=== PATIENT | female | born 1950 | race Caucasian/White ===

== ENCOUNTER 2019-01-23 05:30 | Inpatient (IN) | payer MEDICARE, BC ==
--- NOTE | 2019-01-20 07:44 | PREOPHP ---
DATE OF ADMISSION: 01/23/2019 HISTORY OF PRESENT ILLNESS: This is a 69-year-old female being admitted for right hip surgery. She has history of asthma, fibromyalgia, hypothyroidism and hypogonadism. PAST MEDICAL HISTORY: History of heart disease. Negative for kidney disease. Negative for hyperte nsion, negative cerebrovascular accident. Negative bleeding tendencies. Does have history of COPD. Allergic asthmatic attacks. Denies diabetes, liver disease, nonsmoker. She had a cardiac ablation 03/27/2018 for PSVT and she has had some asthmatic attacks for the past 35 years, being exposed to se condhand smoke. ALLERGIES: INCLUDE PENICILLIN, FLAGYL, and MORPHINE. SURGICAL HISTORY: 1995 hysterectomy, laparoscopic cholecystectomy 1996, fusion C5-C6 2000, bilateral mastectomies 2002, bilateral hip bursectomy 2008 and 2009. She is being treated for hypogonadism, h ypothyroidism for the last couple years. She is on clonidine. MEDICATIONS: Include Clonidine, B12, Cytomel 35 mg twice a day, on Bactrim as needed for UTIs. She also has problems with constipation somewhat better at this time. PHYSICAL EXAMINATION GENERAL: This is a 69-year-old female, thin built, in no acute distress. VITAL SIGNS: Stable. HEENT: She is not anemic or jaundiced or cyanosed. NECK: No pedal edema or jugular venous distention. CHEST: Clear. HEART: S1, S2 heard. ABDOMEN: Soft, nontender, no masses. Liver, spleen, kidneys not palpable. EXTREMITIES: Some problems with the right hip for which she is scheduled for surgery in the near [facility], later [facility]. RECTAL: Rectal examination is negative. PELVIC: Pelvic exam: No masses. She did have introital surgery to enlarge the introital opening whi ch had contracted following AP repair and vaginoplasty in the past. PREOPERATIVE LABORATORIES: Chest x-ray, EKG have been ordered. The patient is clinically stable and will not be a serious risk for surgery. If you have any further questions, please feel to call me, Dr. Sales, . Dr. Sales dictating Pre-Operartive History and Physical for Dr. Dannielle Mathew. Dictated By: DANNIELLE STATON/PATTI Conf#: [id number] DID#: [id number]
[~2019-01-23] VITALS: Ht 177.8 cm; Wt 69.9 kg
[2019-01-23] VITALS (43 sets, daily range): BP systolic 78–110; BP diastolic 45–72; PULSE 65–102; RESP 11–29; Ht 177.8 cm; Wt 69.9 kg
--- NOTE | 2019-01-23 05:47 | HPN ---
Date/Time of Note Date/Time of Note DATE: 01/23/19 TIME: 05:47 Interval H&P Admission Note Pt. seen H&P reviewed: No system changes DANNIELLE CHRISTIANSEN MD January 23, 2019 05:47
--- NOTE | 2019-01-23 05:48 | OPR ---
Date/Time of Note Date/Time of Note DATE: 01/23/19 TIME: 05:47 Operative Report Procedure Date: January 23, 2019 Preoperative Diagnosis Right hip arthritis following hip arthroscopy Postoperative Diagnosis Right hip arthritis following hip arthroscopy Operation/Procedure Performed 1. Revision of right hip arthroscopy to total hip arthroplasty 2. Injection of PRP solution Surgeon see signature line District Administrative Assistant Abdi Morocho DO Second District Administrative Assistant: ZAY ACEVEDO PA-C Anesthesia Type: general Estimated Blood Loss: 200 - 250 ml's Transfusion none Specimen None Grafts/Implants See body of op note Complications none Pt Condition Post Procedure: stable Disposition: PACU Procedure Description BREAKFAST BAR ATTENDANT SURGEON: Abdi Morocho DO was asked to be present at my request as a result of the complexity associated with this procedure including positioning of the extremity, positioning of the instrumentation and protection of the neurovascular structures. In my opinion, the assistance offered by a sleep tech is insufficient and he should be compensated for his time. PROCEDURE IN DETAIL: Following the administration of general endotracheal anesthesia supplemented with a spinal anesthetic, the patient was placed in the supine position. The antecubital fossa on the left was prepped and 60 cc of blood were aspirated. Under sterile conditions, the blood was passed off to the field service representative from the company who prepared the PRP solution. The left lower extremity was then prepped and draped in the usual sterile fashion. A advertising material distributor radiograph was obtained for preliminary limb length and femoral size as well as acetabular size. A lateral incision was then made exposing the tensor fascia the fascia was incised the tensor was retracted laterally and the vessels were cauterized. Severe scarring was noted from the prior surgical procedure that included an arthroscopic labral repair and capsulorrhaphy. Very significant scar tissue was encountered in the approach. This was then excised and mobilized in order to expose the anterior capsule. The anterior capsule was then identified and prepared for an incision. A capsulotomy was then performed and the femoral head was then evaluated. Severe arthritic changes were noted. In addition, multiple sutures were removed from the prior labral repair. A femoral head cut was then made in the appropriate degree of version and inclination. Following dislocation, severe arthritic changes were noted with very extensive than severe cystic changes in the femoral head. The acetabulum was then exposed and a capsulectomy and labrectomy were completed. The central portion was then entered and serially reamed up to the 51 mm size. A [employer] [place] cup which was 50 to mm, with a standard liner was then fit into position with solid fixation. Attention was then directed to the femur, the femur was exposed and prepared. The canal was entered and serially reamed up to the size 6 high offset. The femoral canal was then thoroughly irrigated and the PRP solution was then instilled into the femoral canal. A size 6 high offset Depuy Actis stem was then inserted with solid fixation. A 32 mm, +5 mm femoral head, which was ceramic was then inserted. The leg was taken through full range of motion with no evident instability. In addition, radiographs revealed excellent position with reproduction of the limb lengths within a millimeter. The wound was irrigated thoroughly. The wound was then closed in layers and a Prenio for the final cover. This was watertight. Estimated blood loss was procedure was 250 cc. Postoperative radiographs will be obtained in the recovery room. DANNIELLE CHRISTIANSEN MD January 23, 2019 05:48
[2019-01-23] MEDS ORDERED: TRANEXAMIC ACID 1GM/100ML(PMX) 100 ML IVPB SCH (06:00)
[2019-01-23] MEDS ORDERED: VANCOMYCIN 1 GM (PMX) 250 ML IVPB SCH (06:00)
[2019-01-23] MEDS ORDERED: SOD CHLORIDE 0.9% 100 ML, TRANEXAMIC ACID 3,000 MG IRR SCH ×2 (06:00)
[2019-01-23] MEDS ORDERED: BUPIVACAINE 0.5% (SDV) 30 ML, morphine SULFATE (PF) 8 MG, EPINEPHrine 0.3 MG, KETOROLAC... IRR SCH ×7 (06:00)
[2019-01-23] MEDS ORDERED: DEXAMETHASONE 1 MG TAB PO SCH (06:00)
[2019-01-23] MEDS ORDERED: GABAPENTIN 300 MG CAP PO SCH ×3 (06:00→21:00)
[2019-01-23] MEDS ORDERED: [UNRECOGNIZED DRUG - OTHER] PO (06:20)
[2019-01-23] MEDS ORDERED: GABA300C PO (06:20)
[2019-01-23] MEDS ORDERED: METO-319 PO (06:20)
[2019-01-23] MEDS ORDERED: LEVO25TA6 PO (06:20)
[2019-01-23] MEDS ORDERED: ALBU18HF INHALATION (06:22)
[2019-01-23] MEDS ORDERED: TIOT18CA INHALATION (06:22)
--- NOTE | 2019-01-23 06:45 | PREAC ---
Date/Time of Note Date/Time of Note DATE: 01/23/19 TIME: 06:40 Anesthesia Eval and Record Evaluation Time Pre-Procedure Interview DATE: 01/23/19 TIME: 06:40 Age 68 Sex female NPO: 8 hrs Preoperative diagnosis DJD, R. Hip Planned procedure CINTIA, Anterior Past Medical History Past Medical History: Includes Cardio: Arrythmia Pulm: Asthma Surgery & Anesthesia Issues Hx of PONV (Most likley due to Narcotics) Meds Anticoagulation: No Beta Arsh within 24 hr: Yes Reported Medications Albuterol Sulfate* (Ventolin HFA*) 18 Gm Hfa.aer.ad, 2 PUFF INHALATION BID, #1 INHALER 01/23/19 Tiotropium [place]* (Spiriva*) 18 Mcg Cap.w.dev, 2 CAP INHALATION DAILY, #30 CAP 01/23/19 [fleconaid ] No Conflict Check, 10 MG PO BID 01/23/19 Metoprolol Succinate* (Toprol XL*) 50 Mg Tab.er.24h, 50 MG PO BID, #30 TAB 01/23/19 Levothyroxine Sodium* (Levothyroxine Sodium*) 25 Mcg Tablet, 25 MCG PO BID, #30 TAB 01/23/19 Gabapentin* (Neurontin*) 300 Mg Capsule, 300 MG PO BID, #60 CAP 01/23/19 Current Medications Vancomycin HCl 250 ml @ 250 mls/hr PRE-OP IVPB Last administered on 01/23/19at 06:33; Admin Dose 250 MLS/HR; Start 01/23/19 at 06:00; Stop 01/23/19 at 16:00 Tranexamic Acid 100 ml @ 200 mls/hr Pre-op IVPB ; Start 01/23/19 at 06:00; Stop 01/23/19 at 16:00 Sodium Chloride/ Tranexamic Acid INTRA-OP IRR ; Start 01/23/19 at 06:00; Stop 01/23/19 at 16:00 Bupivacaine HCl/ Morphine Sulfate/ Epinephrine/ Ketorolac Tromethamine/ Clonidi ne HCl/ Sodium Chloride/ Vancomycin HCl INTRA-OP IRR ; Start 01/23/19 at 06:00; Stop 01/23/19 at 16:00 Dexamethasone (Decadron) 2 mg PREOP PO Last administered on 01/23/19at 06:33; Admin Dose 2 MG; Start 01/23/19 at 06:00; Stop 01/23/19 at 16:00 Gabapentin (Neurontin) 300 mg ONCE PO Last administered on 01/23/19at 06:33; Admin Dose 300 MG; Start 01/23/19 at 06:00; Stop 01/23/19 at 16:00 Meds reviewed: Yes Allergies Coded Allergies: Penicillins (Verified Allergy, Intermediate, 01/22/19) 01/22: PCN- ITCHING, METRONIDAZOLE- SEVERE RASH (PER DARCI FROM DR CHRISTIANSEN'S REQUEST) metronidazole (Verified Allergy, Intermediate, SEVERE RASH, 01/22/19) Allergies Reviewed: Yes Labs/Studies Labs Reviewed: Reviewed by anesthesiologist test: N/A Pre-procedure Exam Last vitals Vital Signs Date Temp Pulse Resp B/P (MAP) Pulse Ox O2 O2 Flow FiO2 Time Delivery Rate 01/23/19 97.4 86 18 110/67 99 Room Air 06:12 (81) Airway: Adequate mouth opening Mallampati: Mallampati II Teeth: Normal Lung: Normal Heart: Normal ASA Physical Status ASA physical status: 3 Emergency: None Planned Anesthetic General/MAC: LMA Neuraxial: Spinal Nerve block: Other (Spinal for post op pain, No Duramorph) Pre-operative Attestations Prior to commencing anesthesia and surgery, the patient was re-evaluated, there was verification of: *The patient's identity *The results of appropriate recent lab work and preoperative vital signs *The above evaluation not changing prior to induction *Anesthetic plan, risk benefits, alternative and complications discussed with patient/family; questions answered; patient/family understands, accepts and wishes to proceed. ADRIAN VAZQUEZ MD January 23, 2019 06:45
[2019-01-23] MEDS ORDERED: PROPOFOL 20 ML ONE (06:47)
[2019-01-23] MEDS ORDERED: PHENYLephrine (100 MCG/ML) 5ML SYG ONE (06:48)
[2019-01-23] MEDS ORDERED: TRANEXAMIC ACID 1GM/100ML(PMX) 200 ML ONE (06:51)
[2019-01-23] MEDS ORDERED: GLYCOPYRROLATE 0.4 MG INJ ONE (07:00)
[2019-01-23] MEDS ORDERED: EPHEDrine 25 MG/5 ML SYG ONE (07:00)
[2019-01-23] MEDS ORDERED: GABA-526 PO (07:01)
[2019-01-23] MEDS ORDERED: FLEC50TA PO (07:03)
[2019-01-23] MEDS ORDERED: FLUT1BLS INHALATION (07:04)
[2019-01-23] MEDS ORDERED: THROMBIN 5000 UNIT VIAL ONE (07:33)
[2019-01-23] MEDS ORDERED: CA CHLORIDE (GM) 10% 10 ML INJ ONE (07:33)
[2019-01-23] MEDS ORDERED: POLYMYXIN/BACITRACIN 1L IRRIG IRR ONE (07:49)
[2019-01-23] MEDS ORDERED: METOCLOPRAMIDE 10 MG INJ IV PRN (08:30)
[2019-01-23] MEDS ORDERED: ACETAMINOPHEN 325 MG TAB PO ONE (08:30)
[2019-01-23] MEDS ORDERED: ETOMIDATE 20 MG INJ ONE (08:32)
[2019-01-23] MEDS ORDERED: KETOROLAC 30 MG INJ ONE (08:33)
[2019-01-23] MEDS: ALBUTEROL HFA 8 GM INHALER INH SCH ×2 (09:00→23:00)
[2019-01-23] MEDS ORDERED: DIPHENHYDRAMINE 50 MG INJ IV PRN (09:00)
[2019-01-23] MEDS ORDERED: ONDANSETRON 4 MG INJ IV PRN (09:00)
[2019-01-23] MEDS ORDERED: oxyCODONE 5 MG TAB PO PRN ×3 (09:00)
[2019-01-23] MEDS ORDERED: HYDROmorphONE 1 MG/ML SYG IV PRN (09:00)
[2019-01-23] MEDS ORDERED: LEVOTHYROXINE 25 MCG TAB PO SCH (09:00)
[2019-01-23] MEDS ORDERED: ZOLPIDEM 5 MG TAB PO PRN (09:00)
[2019-01-23] MEDS ORDERED: MAGNESIUM HYDROXIDE 30ML CUP PO PRN (09:00)
[2019-01-23] MEDS ORDERED: NACL 0.9% 3 ML SYG IV SCH (09:00)
--- NOTE | 2019-01-23 09:31 | PAC ---
Date/Time of Note Date/Time of Note DATE: 01/23/19 TIME: 09:31 Post-Anesthesia Notes Post-Anesthesia Note Last documented vital signs Vital Signs Date Temp Pulse Resp B/P (MAP) Pulse Ox O2 O2 Flow FiO2 Time Delivery Rate 01/23/19 97.4 86 18 110/67 99 Room Air 06:12 (81) Activity: WNL Respiratory function: WNL Cardiovascular function: WNL Mental status: Baseline Pain reasonably controlled: Yes Hydration appropriate: Yes Nausea/Vomiting absent: Yes ADRIAN VAZQUEZ MD January 23, 2019 09:31
[2019-01-23] MEDS: ACETAMINOPHEN 1000MG/100ML IV 100 ML IVPB SCH ×2 (09:45→17:28)
[2019-01-23] MEDS ORDERED: ALBUMIN HUMAN 5% 250 ML ONE ×2 (10:28)
[2019-01-23] MEDS: ALBUMIN HUMAN 5% 250 ML IV SCH ×2 (10:41→11:43)
[2019-01-23] MEDS: LACTATED RINGER'S 1,000 ML IV SCH ×3 (12:38→23:26)
[2019-01-23] MEDS: DEXAMETHASONE 2 MG TAB PO SCH ×2 (12:38→17:28)
--- NOTE | 2019-01-23 12:38 | PDOCDIS ---
Discharge Instructions DIAGNOSIS Discharge Diagnosis Hip arthritis CONDITION [id number] Patient Condition: [id number] Good HOME CARE INSTRUCTIONS: [id number] Diet Instructions: [id number] Regular ACTIVITY: [id number] Activity Restrictions: [id number] Slowly Increase Activity Keep Limb Elevated [id number] Bathing Restrictions: [id number] Shower FOLLOW UP/APPOINTMENTS Follow-up Plan 2 weeks in the office SCHOOL/WORK RELEASE May return to School/Work with: With Restrictions School/Work Release Comment: No hip extension for 6 weeks DANNIELLE CHRISTIANSEN MD January 23, 2019 12:38
[2019-01-23] MEDS: VANCOMYCIN 500 MG (PMX) 100 ML IVPB SCH (18:28)
[2019-01-23] MEDS: SENNA/DOCUSATE NA (8.6MG/50MG) TAB PO SCH (21:40)
[2019-01-23] MEDS: FLECAINIDE 50 MG TAB PO SCH (21:42)
[2019-01-23] MEDS: METOPROLOL (XL) 50 MG TAB PO SCH (21:47)
[2019-01-23] MEDS ORDERED: FLUTICASONE/VILANTEROL 200-25 INH DEVICE INH SCH ×2 (23:45)
[2019-01-24] VITALS: BP 92/45; PULSE 68; RESP 20
[2019-01-24] MEDS: ACETAMINOPHEN 1000MG/100ML IV 100 ML IVPB SCH (00:53)
[2019-01-24] MEDS: DEXAMETHASONE 2 MG TAB PO SCH ×2 (00:53→06:25)
[2019-01-24 04:00] VITALS: BP 102/52; PULSE 65; RESP 18
--- NOTE | 2019-01-24 06:21 | PN ---
Date/Time of Note Date/Time of Note DATE: 01/24/19 TIME: 06:21 Subjective Awake and alert. No complaints. Objective Vitals Vital Signs Date Temp Pulse Resp B/P (MAP) Pulse Ox O2 O2 Flow FiO2 Time Delivery Rate 01/24/19 97.8 68 20 92/45 (61) 98 Room Air 00:00 Intake and Output 01/23/19 01/23/19 01/24/19 1515:00 23:00 07:00 IntakeIntake Total 2750 ml 1500 ml OutputOutput Total 400 ml 1500 ml BalanceBalance 2350 ml 0 ml Wound clean and dry. Neurologically intact. No signs of DVT. Results Result Diagram: 01/24/19 0420 Medications Medications Current Medications Albuterol (Ventolin Hfa) 2 puff BID RESP THERAPY INH ; Start 01/23/19 at 09:00 Flecainide Acetate (Tambocor) 50 mg BID PO Last administered on 01/23/19at 21:42; Admin Dose 50 MG; Start 01/23/19 at 21:00 Gabapentin (Neurontin) 600 mg QHS PO Last administered on 01/23/19at 21:41; Admin Dose 600 MG; Start 01/23/19 at 21:00 Levothyroxine Sodium (Synthroid) 25 mcg BID PO ; Start 01/23/19 at 09:00; Status UNV Metoprolol Succinate (Toprol Xl) 50 mg BID PO Last administered on 01/23/19at 21:47; Admin Dose 50 MG; Start 01/23/19 at 21:00 Lactated Ringer's 1,000 ml @ 100 mls/hr Q10H IV Last administered on 01/23/19at 23:26; Admin Dose 100 MLS/HR; Start 01/23/19 at 09:00 Vancomycin HCl 100 ml @ 100 mls/hr Q12H IVPB Last administered on 01/23/19 18:28; Admin Dose 100 MLS/HR; Start 01/23/19 at 18:00; Stop 01/24/19 at 06:59 Senna/Docusate Sodium (Senokot-S) 1 tab BID PO Last administered on 01/23/19at 21:40; Admin Dose 1 TAB; Start 01/23/19 at 21:00 Simethicone (Mylicon) 80 mg TID PRN PO .GAS; Start 01/23/19 at 09:00 Magnesium Hydroxide (Milk Of Mag) 30 ml BID PRN PO .CONSTIPATION; Start 01/23/19 at 09:00 Magnesium Hydroxide (Milk Of Mag) 30 ml HS PO ; Start 01/25/19 at 21:00 Gabapentin (Neurontin) 300 mg HS PO ; Start 01/23/19 at 21:00 Oxycodone HCl (Roxicodone) 15 mg Q4H PRN PO .PAIN; Start 01/23/19 at 09:00 Oxycodone HCl (Roxicodone) 10 mg Q4H PRN PO .PAIN; Start 01/23/19 at 09:00 Oxycodone HCl (Roxicodone) 5 mg Q4H PRN PO .PAIN; Start 01/23/19 at 09:00 Hydromorphone HCl (Dilaudid) 1 mg Q4H PRN IV .BREAKTHROUGH PAIN; Start 01/23/19 at 09:00 Ondansetron HCl (Zofran Inj) 4 mg Q6H PRN IV NAUSEA/VOMITING; Start 01/23/19 at 09:00 Diphenhydramine HCl (Benadryl) 25 mg Q6H PRN IV .PRURITUS; Start 01/23/19 at 09:00 Zolpidem Tartrate (Ambien) 10 mg HS PRN PO .INSOMNIA; Start 01/23/19 at 09:00 IV Flush (NS 3 ml) 3 ml per protocol IV ; Start 01/23/19 at 09:00 Aspirin (Ecotrin) 325 mg DAILY PO ; Start 01/24/19 at 09:00 Fluticasone/ Vilanterol (Breo Ellipta 200-25 Mcg Inh) 1 inh HS INH ; Start 01/23/19 at 23:45 VTE Prophylaxis Risk score (from Nsg)>0 risk: 12 SCD applied (from Nsg): Yes Lines/Catheters IV Catheter Type: Saline Lock García in Place: No Assessment/Plan Hospital Course Admitted, underwent uncomplicated procedure. Postop day 1 stable afebrile discharge home to be followed in 2 weeks Assessment/Plan Assessment: Status post total hip Plan: Begin PT this morning discharge when independent DANNIELLE CHRISTIANSEN MD January 24, 2019 06:21
--- NOTE | 2019-01-24 06:21 | DS ---
Date/Time of Note Date/Time of Note DATE: 01/24/19 TIME: 06:20 Discharge Summary Admission/Discharge Info Admit Date/Time January 23, 2019 at 05:30 Discharge Date/Time 01/24/2019 Discharge Diagnosis Hip arthritis Patient Condition: Good Hospital Course Admitted, underwent uncomplicated procedure. Postop day 1 stable afebrile discharge home to be followed in 2 weeks Home Meds Reported Medications Fluticasone/Vilanterol (Breo Ellipta 200-25 Mcg INH) 1 Each Blst.w.dev, 1 PUFF INHALATION DAILY, #1 INHALER 01/23/19 Flecainide Acetate* (Flecainide Acetate*) 50 Mg Tablet, 50 MG PO BID, TAB 01/23/19 Gabapentin* (Gabapentin*) 600 Mg Tablet, 600 MG PO QHS, #60 TAB 01/23/19 Albuterol Sulfate* (Ventolin HFA*) 18 Gm Hfa.aer.ad, 2 PUFF INHALATION BID, #1 INHALER 01/23/19 Tiotropium [place]* (Spiriva*) 18 Mcg Cap.w.dev, 2 CAP INHALATION DAILY, #30 CAP 01/23/19 Metoprolol Succinate* (Toprol XL*) 50 Mg Tab.er.24h, 50 MG PO BID, #30 TAB 01/23/19 Levothyroxine Sodium* (Levothyroxine Sodium*) 25 Mcg Tablet, 25 MCG PO BID, #30 TAB 01/23/19 Discontinued Reported Medications [fleconaid ] No Conflict Check, 10 MG PO BID 01/23/19 Gabapentin* (Neurontin*) 300 Mg Capsule, 300 MG PO BID, #60 CAP 01/23/19 Follow-up Plan 2 weeks in the office Primary Care Provider Not On Staff Doctor Pending Labs Laboratory Tests Test 01/23/19 09:25 01/24/19 04:20 White Blood Count 18.2 10^3/ul (4.8-10.8) 14.0 10^3/ul (4.8-10.8) Red Blood Count 3.48 10^6/ul (4.20-5.40) 3.30 10^6/ul (4.20-5.40) Hemoglobin 11.0 g/dl (12.0-16.0) 10.4 g/dl (12.0-16.0) Hematocrit 32.9 % (37.0-47.0) 31.4 % (37.0-47.0) Mean Corpuscular Volume 94.5 fl (82.0-101.0) 95.2 fl (82.0-101.0) Mean Corpuscular 31.6 pg (29.0-33.0) 31.5 pg (29.0-33.0) Hemoglobin Mean Corpuscular 33.4 g/dl (32.0-37.0) 33.1 g/dl (32.0-37.0) Hemoglobin Concent Red Cell Distribution 12.3 % (11.5-14.5) 12.7 % (11.5-14.5) Width Platelet Count 256 10^3/UL (140-415) 226 10^3/UL (140-415) Mean Platelet Volume 9.0 fl (7.4-10.4) 9.8 fl (7.4-10.4) Immature Granulocytes % 0.800 % (0.001-0.429) 0.400 % (0.001-0.429) Neutrophils % 87.8 % (39.0-77.0) 81.9 % (39.0-77.0) Lymphocytes % 7.2 % (15.0-51.0) 9.8 % (15.0-51.0) Monocytes % 3.6 % (0.0-11.0) 7.8 % (0.0-11.0) Eosinophils % 0.3 % (0.0-7.0) 0.0 % (0.0-7.0) Basophils % 0.3 % (0.0-2.0) 0.1 % (0.0-2.0) Nucleated Red Blood Cells 0.0 /100WBC (0.0-0.0) 0.0 /100WBC (0.0-0.0) % Immature Granulocytes # 0.140 10^3/ul (0.0-0.031) 0.050 10^3/ul (0.0-0.031) Neutrophils # 16.0 10^3/ul (1.6-7.5) 11.4 10^3/ul (1.6-7.5) Lymphocytes # 1.3 10^3/ul (0.8-2.9) 1.4 10^3/ul (0.8-2.9) Monocytes # 0.7 10^3/ul (0.3-0.9) 1.1 10^3/ul (0.3-0.9) Eosinophils # 0.1 10^3/ul (0.0-0.5) 0.0 10^3/ul (0.0-0.5) Basophils # 0.1 10^3/ul (0.0-0.1) 0.0 10^3/ul (0.0-0.1) Nucleated Red Blood Cells 0.0 10^3/ul (0.0-0.0) 0.0 10^3/ul (0.0-0.0) # CBC Results Faxed/Phoned 1 DANNIELLE CHRISTIANSEN MD January 24, 2019 06:21
[2019-01-24] MEDS: VANCOMYCIN 500 MG (PMX) 100 ML IVPB SCH (06:24)
[2019-01-24] MEDS ORDERED: LIOTHYRONINE 25 MCG TAB PO SCH (07:30)
[2019-01-24 08:19] VITALS: BP 104/52; PULSE 64; RESP 18
[2019-01-24] MEDS: SENNA/DOCUSATE NA (8.6MG/50MG) TAB PO SCH (08:35)
[2019-01-24] MEDS: FLECAINIDE 50 MG TAB PO SCH (08:36)
[2019-01-24] MEDS: METOPROLOL (XL) 50 MG TAB PO SCH (08:37)
[2019-01-24] MEDS ORDERED: ASPIRIN (EC) 325 MG TAB PO SCH (09:00)
[2019-01-24] MEDS ORDERED: FLUTICASONE/VILANTEROL 200-25 INH DEVICE INH SCH (09:00)
[2019-01-24] MEDS: ALBUTEROL HFA 8 GM INHALER INH SCH (10:59)
[2019-01-25] MEDS ORDERED: MAGNESIUM HYDROXIDE 30ML CUP PO SCH (21:00)
== END 2019-01-24 13:55 | disposition home or self-care (01) | DRG 470 ==
LOC: REC 05:30 → MS1 11:39
PROVIDERS: ADMIT Orthopaedic Surgery; ATTEND Orthopaedic Surgery
PROC: 0SR904A Replacement of Right Hip Joint with Ceramic on Polyethylene Synthetic Substitute, Uncemented, Open Approach (ICD-10-PCS; principal; 2019-01-23 07:00)
DX: M16.11 Unilateral primary osteoarthritis, right hip (principal); I49.9 Cardiac arrhythmia, unspecified; E03.9 Hypothyroidism, unspecified; J44.9 Chronic obstructive pulmonary disease, unspecified
CPT/HCPCS: 72170; 73530; 85025; 86999; 87086; 88304; 88311; 97161; C1713; C1776; J0131; J0171; J1885; J2274; J2370; J2765; J3370; J7120; P9045